=== PATIENT | female | born 1940 | race African-American/Black ===

== ENCOUNTER 2018-10-29 17:50 | Emergency (ER) | payer BC, MEDICARE, OTHER ==
[~2018-10-29] VITALS: Ht 162.6 cm; Wt 63.5 kg
[2018-10-29 18:57] LABS: Basophils # (auto) 0 uL; Basophils % (auto) 0.6 % (0.0-2.0); Eosinophils # (auto) 0 uL; Eosinophils % (auto) 0.8 % (0.0-7.0); Hematocrit 43.6 % (36.0-46.0); Hemoglobin 14.6 g/dL (12.2-16.2); Lymphocytes # (auto) 1.5 uL; Lymphocytes % (auto) 29.7 % (10.0-50.0); Mean Corpuscular Hemoglobin 30.6 pg (28.0-32.0); Mean Corpuscular Hgb Conc. 33.5 g/dL (32.0-36.0); Mean Corpuscular Volume 91.1 fL (80.0-100.0); Monocytes # (auto) 0.4 uL; Monocytes % (auto) 7.2 % (0.0-12.0); Neutrophils # (auto) 3.1 uL; Neutrophils % (auto) 61.7 % (37.0-80.0); Nucleated Red Blood Cells % 0.1 %; Platelet Count (auto) 206 10^3/uL (140-450); Red Blood Cells 4.78 10^6/uL (4.0-5.20); Red Cell Distribution Width 13.3 % (11.8-14.3)
[2018-10-29 19:12] LABS: Albumin 3.5 g/dL (3.4-5.0); Anion Gap 9 (5-15); BUN/Creatinine Ratio 9.9; Blood Urea Nitrogen 9 mg/dL (7-18); Calcium 8.6 mg/dL (8.5-10.1); Carbon Dioxide 31 mmol/L (21-32); Chloride 105 mmol/L (98-107); GFR African American 77 mL/min; GFR Non-African American 64 mL/min; Glucose 98 mg/dL (74-106); Potassium 3.1 mmol/L (3.5-5.1); Sodium 145 mmol/L (136-145)
[2018-10-29 19:23] LABS: Alanine Aminotransferase 15 U/L (13-56); Alkaline Phosphatase 80 U/L (45-117); Aspartate Aminotransferase 17 U/L (15-37); Bilirubin, Total 0.8 mg/dL (0.2-1.0)
[2018-10-29 20:18] VITALS: BP 163/75
== END 2018-10-29 20:26 | disposition home or self-care (01) ==
LOC: EDBD 17:50 → ER 17:55
DX: I10 Essential (primary) hypertension (principal); E11.9 Type 2 diabetes mellitus without complications; M10.9 Gout, unspecified; F17.210 Nicotine dependence, cigarettes, uncomplicated; Z88.2 Allergy status to sulfonamides
CPT/HCPCS: 36415; 80053; 84484; 85025; 93005

== ENCOUNTER → 2018-11-16 | Outpatient (CLI) | payer BC, MEDICARE ==
[2018-11-16 08:32] LABS: Basophils # (auto) 0 uL; Basophils % (auto) 0.6 % (0.0-2.0); Eosinophils # (auto) 0.1 uL; Eosinophils % (auto) 1.9 % (0.0-7.0); Hematocrit 45.5 % (36.0-46.0); Lymphocytes # (auto) 1.5 uL; Lymphocytes % (auto) 29.6 % (10.0-50.0); Mean Corpuscular Hemoglobin 30.3 pg (28.0-32.0); Mean Corpuscular Hgb Conc. 33.1 g/dL (32.0-36.0); Mean Corpuscular Volume 91.6 fL (80.0-100.0); Monocytes # (auto) 0.4 uL; Monocytes % (auto) 7.6 % (0.0-12.0); Neutrophils # (auto) 3.1 uL; Neutrophils % (auto) 60.3 % (37.0-80.0); Nucleated Red Blood Cells % 0.1 %; Platelet Count (auto) 254 10^3/uL (140-450); Red Blood Cells 4.96 10^6/uL (4.0-5.20); Red Cell Distribution Width 13.2 % (11.8-14.3); White Blood Cell 5.1 10^3/uL (4.4-10.8)
[2018-11-16 09:17] LABS: Albumin 3.8 g/dL (3.4-5.0); Calcium 9.1 mg/dL (8.5-10.1); Potassium 3.6 mmol/L (3.5-5.1)
[2018-11-16 09:23] LABS: Bilirubin, Total 0.5 mg/dL (0.2-1.0); CRP High Sensitivity 0.08 mg/dL (< 0.3); Total Protein 7.4 g/dL (6.4-8.2)
== END | disposition home or self-care (01) ==
LOC: LAB 07:51
PROVIDERS: ATTEND Nurse Practitioner
DX: Z13.220 Encounter for screening for lipoid disorders (principal); Z02.83 Encounter for blood-alcohol and blood-drug test; Z12.11 Encounter for screening for malignant neoplasm of colon; R68.89 Other general symptoms and signs; R94.6 Abnormal results of thyroid function studies; E55.9 Vitamin D deficiency, unspecified; R80.9 Proteinuria, unspecified; R79.89 Other specified abnormal findings of blood chemistry
CPT/HCPCS: 36415; 80053; 80061; 82306; 83036; 84439; 84443; 85025; 86141; 87086

== ENCOUNTER 2019-01-13 10:39 | Emergency (ER) | payer BC, MEDICARE ==
[~2019-01-13] VITALS: Ht 167.6 cm; Wt 61.2 kg
[2019-01-13 11:19] LABS: Basophils # (auto) 0 uL; Basophils % (auto) 0.3 % (0.0-2.0); Eosinophils # (auto) 0 uL; Eosinophils % (auto) 0.2 % (0.0-7.0); Hematocrit 39.5 % (36.0-46.0); Hemoglobin 13.4 g/dL (12.2-16.2); Lymphocytes # (auto) 1.1 uL; Lymphocytes % (auto) 10.4 % (10.0-50.0); Mean Corpuscular Hemoglobin 30.5 pg (28.0-32.0); Mean Corpuscular Hgb Conc. 33.9 g/dL (32.0-36.0); Mean Corpuscular Volume 89.9 fL (80.0-100.0); Monocytes # (auto) 0.9 uL; Monocytes % (auto) 8.7 % (0.0-12.0); Neutrophils # (auto) 8.6 uL; Neutrophils % (auto) 80.4 % (37.0-80.0); Nucleated Red Blood Cells % 0.2 %; Platelet Count (auto) 383 10^3/uL (140-450); Red Cell Distribution Width 12.9 % (11.8-14.3); White Blood Cell 10.7 10^3/uL (4.4-10.8)
[2019-01-13] MEDS ORDERED: IPRATROPIUM BROM 0.5 MG/2.5ML INH SOL HHN ONE (11:30)
[2019-01-13] MEDS ORDERED: methylPREDNISolone SOD SUCC 125 MG/2 ML VL IV ONE (11:30)
[2019-01-13] MEDS ORDERED: ALBUTEROL SULF 2.5 MG/0.5ML(0.5%) NEB SOLN HHN ONE (11:30)
[2019-01-13 11:58] LABS: Potassium 2.8 mmol/L (3.5-5.1)
[2019-01-13] MEDS ORDERED: POTASSIUM CHL 20 Meq TABLET PO ONE (12:00)
[2019-01-13 12:58] VITALS: BP 151/72
== END 2019-01-13 13:10 | disposition home or self-care (01) ==
LOC: ER 10:39
DX: J20.9 Acute bronchitis, unspecified (principal); J44.9 Chronic obstructive pulmonary disease, unspecified; M10.9 Gout, unspecified; E78.5 Hyperlipidemia, unspecified; E11.9 Type 2 diabetes mellitus without complications; F17.210 Nicotine dependence, cigarettes, uncomplicated
CPT/HCPCS: 36415; 71045; 80048; 85025; 93005; 94640; 94761; 96374; 99284; J2930; J7611; J7644

== ENCOUNTER 2019-06-13 16:07 | Emergency (ER) | payer BC ==
[~2019-06-13] VITALS: Ht 167.6 cm; Wt 61.7 kg
[2019-06-13] MEDS ORDERED: cloNIDine HCL 0.1 MG TAB ONE (16:52)
[2019-06-13] MEDS ORDERED: cloNIDine HCL 0.1 MG TAB PO ONE (17:00)
[2019-06-13 19:07] LABS: Alanine Aminotransferase 12 U/L (13-56); Albumin 3.6 g/dL (3.4-5.0); Anion Gap 3 (5-15); Aspartate Aminotransferase 13 U/L (15-37); BUN/Creatinine Ratio 8.1; Blood Urea Nitrogen 8 mg/dL (7-18); Calcium 8.9 mg/dL (8.5-10.1); Carbon Dioxide 31 mmol/L (21-32); Chloride 107 mmol/L (98-107); GFR African American 70 mL/min; GFR Non-African American 58 mL/min; Glucose 115 mg/dL (74-106); Potassium 3.3 mmol/L (3.5-5.1); Sodium 141 mmol/L (136-145)
[2019-06-13 19:12] LABS: Basophils # (auto) 0 uL; Basophils % (auto) 0.6 % (0.0-2.0); Eosinophils # (auto) 0 uL; Eosinophils % (auto) 0.5 % (0.0-7.0); Hematocrit 44.4 % (36.0-46.0); Hemoglobin 15.1 g/dL (12.2-16.2); Lymphocytes # (auto) 1.8 uL; Lymphocytes % (auto) 26.3 % (10.0-50.0); Mean Corpuscular Hemoglobin 30.8 pg (28.0-32.0); Mean Corpuscular Hgb Conc. 33.9 g/dL (32.0-36.0); Mean Corpuscular Volume 90.8 fL (80.0-100.0); Monocytes # (auto) 0.4 uL; Monocytes % (auto) 5.9 % (0.0-12.0); Neutrophils # (auto) 4.7 uL; Neutrophils % (auto) 66.7 % (37.0-80.0); Nucleated Red Blood Cells % 0.2 %; Platelet Count (auto) 260 10^3/uL (140-450); Red Cell Distribution Width 13.6 % (11.8-14.3)
[2019-06-13] MEDS ORDERED: SODIUM CHLORIDE 0.9% 1,000 ML IV ONE (19:15)
[2019-06-13] MEDS ORDERED: DEXTROSE (50%) 50ML SYRG IV ONE (19:15)
[2019-06-13 19:17] LABS: Alkaline Phosphatase 74 U/L (45-117); Total Protein 6.7 g/dL (6.4-8.2)
[2019-06-13 21:30] VITALS: BP 136/61
== END 2019-06-13 23:29 | disposition home or self-care (01) ==
LOC: ER 16:07
DX: I16.0 Hypertensive urgency (principal); E11.9 Type 2 diabetes mellitus without complications; M10.9 Gout, unspecified; E78.5 Hyperlipidemia, unspecified; Z88.2 Allergy status to sulfonamides
CPT/HCPCS: 36415; 80053; 82962; 84484; 85025; 93005; 99284; J7030

== ENCOUNTER 2020-03-25 18:50 | Inpatient (IN) | payer BC, MEDICAID ==
[~2020-03-25] VITALS: Ht 167.6 cm; Wt 55.2 kg
[2020-03-25] MEDS ORDERED: levoFLOXacin 500MG 100 ML IV ONE (19:30)
[2020-03-25] MEDS ORDERED: SODIUM CHLORIDE 0.9% 1,000 ML IVB ONE (19:30)
[2020-03-25 21:42] LABS: Basophils # (auto) 0 10 ^3/uL (0-0.2); Eosinophils # (auto) 0 10 ^3/uL (0-0.8); Lymphocytes # (auto) 0.9 10 ^3/uL (0.4-5.4); Lymphocytes % (auto) 4.9 % (10.0-50.0)
[2020-03-25 21:43] LABS: Basophils % (auto) 0.2 % (0.0-2.0); Hematocrit 52.7 % (36.0-46.0); Hemoglobin 17.1 g/dL (12.2-16.2); Mean Corpuscular Hemoglobin 29.7 pg (28.0-32.0); Mean Corpuscular Hgb Conc. 32.4 g/dL (32.0-36.0); Mean Corpuscular Volume 91.5 fL (80.0-100.0); Monocytes # (auto) 1.2 10 ^3/uL (0-1.3); Monocytes % (auto) 6.7 % (0.0-12.0); Neutrophils # (auto) 15.7 10 ^3/uL (1.6-8.6); Neutrophils % (auto) 88.2 % (37.0-80.0); Platelet Count (auto) 309 10^3/uL (140-450); Red Blood Cells 5.75 10^6/uL (4.0-5.20); Red Cell Distribution Width 13.8 % (11.8-14.3); White Blood Cell 17.9 10^3/uL (4.4-10.8)
[2020-03-26 00:03] LABS: Albumin 3.6 g/dL (3.4-5.0); Anion Gap 12 (5-15); Calcium 9.8 mg/dL (8.5-10.1); Carbon Dioxide 22 mmol/L (21-32); Chloride 116 mmol/L (98-107); Glucose 142 mg/dL (74-106); Magnesium 2.4 mg/dL (1.6-2.6); Potassium 4.4 mmol/L (3.5-5.1); Sodium 150 mmol/L (136-145)
[2020-03-26 00:05] LABS: Alanine Aminotransferase 119 U/L (13-56); Aspartate Aminotransferase 96 U/L (15-37); Blood Alcohol < 3.0 mg/dL (0-5); GFR African American 20 mL/min; GFR Non-African American 16 mL/min; Lactic Acid w/Reflex 5.7 mmol/L (0.4-2.0)
[2020-03-26 00:07] LABS: Alkaline Phosphatase 112 U/L (45-117); BUN/Creatinine Ratio 31.8; Total Protein 8.1 g/dL (6.4-8.2)
[2020-03-26 00:09] LABS: Blood Urea Nitrogen 93 mg/dL (7-18)
[2020-03-26 00:19] LABS: INR 1.24 (0.9-1.15); Partial Thromboplastin Time 25.6 sec (23.0-31.2)
[2020-03-26 01:53] LABS: Urine Bacteria FEW /hpf (None Seen); Urine Blood Negative /uL (Negative); Urine Hyaline Cast MANY /lpf (0 - 2); Urine Specific Gravity 1.015 (1.001-1.035); Urine WBC 1 /hpf (0 - 5)
[2020-03-26 02:03] LABS: BUN/Creatinine Ratio 31.8; Calcium 9.6 mg/dL (8.5-10.1)
[2020-03-26 02:07] LABS: Amphetamine Screen, Urine NEGATIVE (NEGATIVE); Barbiturate Scree,Urine NEGATIVE (NEGATIVE); Benzodiazephine Screen, Urine NEGATIVE (NEGATIVE); Cannabinoid Screen, Urine NEGATIVE (NEGATIVE); Opiate Scree,Urine NEGATIVE (NEGATIVE); Phencyclidine Screen, Urine NEGATIVE (NEGATIVE)
[2020-03-26 02:13] LABS: Alcohol, Urine < 3.0 mg/dL (0-10)
[2020-03-26] MEDS ORDERED: ASPirin 325 MG TAB PO ONE (02:15)
[2020-03-26] MEDS ORDERED: SODIUM CHLORIDE 0.9% 1,000 ML IV ONE (02:15)
[2020-03-26 02:17] LABS: Cocaine Screen, Urine NEGATIVE (NEGATIVE)
[2020-03-26] MEDS ORDERED: NITROGLYCERIN 0.4 MG SL TAB SL PRN (03:00)
[2020-03-26] MEDS ORDERED: ONDANSETRON HCL 4 MG/2 ML VIAL IV PRN (03:00)
[2020-03-26] MEDS ORDERED: DEXTROSE (50%) 50ML SYRG IV PRN (03:00)
[2020-03-26] MEDS ORDERED: SOD CHL 0.45% 1,000 ML IV SCH (03:00)
[2020-03-26] MEDS ORDERED: MORPHINE SULF INJ 2 MG/ML SYRINGE 1ML IV PRN (03:00)
[2020-03-26] MEDS ORDERED: ACETAMINOPHEN 325 MG TAB PO PRN (03:00)
[2020-03-26] MEDS: ACCU-CHEK COMFORT CURVE STRIP VI SCH ×3 (06:00→17:05)
[2020-03-26] MEDS: InsuLIN REG 1unit/0.01ml Soln (100units/ml) SC SCH ×3 (06:00→17:05)
[2020-03-26] MEDS ORDERED: LORazepam 2MG/ML-1ML VIAL IV ONE (08:45)
[2020-03-26] MEDS: APIXABAN 5 MG TAB PO SCH ×2 (12:31→22:00)
[2020-03-26] MEDS: ASPirin 81 mg TAB PO SCH (12:31)
[2020-03-26] MEDS: PANTOPRAZOLE 40 MG/10 ML VIAL INJ IV SCH (12:31)
[2020-03-26 14:28] LABS: Basophils # (auto) 0 10 ^3/uL (0-0.2); Basophils % (auto) 0.1 % (0.0-2.0); Eosinophils # (auto) 0 10 ^3/uL (0-0.8); Hematocrit 43.6 % (36.0-46.0); Hemoglobin 14.5 g/dL (12.2-16.2); Lymphocytes # (auto) 0.8 10 ^3/uL (0.4-5.4); Lymphocytes % (auto) 4.8 % (10.0-50.0); Mean Corpuscular Hemoglobin 29.5 pg (28.0-32.0); Mean Corpuscular Hgb Conc. 33.3 g/dL (32.0-36.0); Mean Corpuscular Volume 88.7 fL (80.0-100.0); Monocytes # (auto) 1.3 10 ^3/uL (0-1.3); Monocytes % (auto) 8.5 % (0.0-12.0); Neutrophils # (auto) 13.7 10 ^3/uL (1.6-8.6); Neutrophils % (auto) 86.6 % (37.0-80.0); Platelet Count (auto) 285 10^3/uL (140-450); Red Blood Cells 4.91 10^6/uL (4.0-5.20); Red Cell Distribution Width 13.5 % (11.8-14.3); White Blood Cell 15.8 10^3/uL (4.4-10.8)
[2020-03-26] MEDS: metroNIDAZOLE 500MG/100ML 100 ML IV SCH ×2 (14:38→22:00)
[2020-03-26 14:43] LABS: Albumin 2.9 g/dL (3.4-5.0); BUN/Creatinine Ratio 38.4; Calcium 8.8 mg/dL (8.5-10.1); Magnesium 2.1 mg/dL (1.6-2.6); Potassium 3.6 mmol/L (3.5-5.1)
[2020-03-26 14:45] LABS: Total Protein 6.7 g/dL (6.4-8.2)
[2020-03-26] MEDS: D5W/SOD CHL 0.45% 1,000 ML IV SCH (17:05)
[2020-03-26] MEDS: ATORVASTATIN 20 MG TAB PO SCH (22:00)
[2020-03-26] MEDS ORDERED: APIXABAN 2.5 MG TAB PO SCH (22:00)
[2020-03-27] MEDS: D5W/SOD CHL 0.45% 1,000 ML IV SCH (03:07)
[2020-03-27] MEDS: InsuLIN REG 1unit/0.01ml Soln (100units/ml) SC SCH ×4 (06:00→17:25)
[2020-03-27] MEDS: ACCU-CHEK COMFORT CURVE STRIP VI SCH ×4 (06:17→17:26)
[2020-03-27] MEDS: metroNIDAZOLE 500MG/100ML 100 ML IV SCH ×3 (06:25→22:00)
[2020-03-27 08:18] LABS: Potassium 4.1 mmol/L (3.5-5.1)
[2020-03-27 08:27] LABS: BUN/Creatinine Ratio 39.6
[2020-03-27 08:28] LABS: Albumin 2.9 g/dL (3.4-5.0); Bilirubin, Total 0.9 mg/dL (0.2-1.0); Calcium 9.4 mg/dL (8.5-10.1); Total Protein 6.8 g/dL (6.4-8.2)
[2020-03-27] MEDS: ASPirin 81 mg TAB PO SCH (08:43)
[2020-03-27] MEDS: PANTOPRAZOLE 40 MG/10 ML VIAL INJ IV SCH (08:43)
[2020-03-27] MEDS: APIXABAN 5 MG TAB PO SCH ×2 (08:43→22:00)
[2020-03-27] MEDS: D5W 5% 1,000 ML IV SCH ×2 (09:36→17:25)
[2020-03-27] MEDS: LORazepam 2MG/ML-1ML VIAL IV PRN ×2 (11:45→21:41)
[2020-03-27 12:00] LABS: Basophils # (auto) 0 10 ^3/uL (0-0.2); Basophils % (auto) 0.2 % (0.0-2.0); Eosinophils # (auto) 0 10 ^3/uL (0-0.8); Hematocrit 48.4 % (36.0-46.0); Hemoglobin 15.9 g/dL (12.2-16.2); Lymphocytes # (auto) 0.9 10 ^3/uL (0.4-5.4); Lymphocytes % (auto) 5.3 % (10.0-50.0); Mean Corpuscular Hemoglobin 29.8 pg (28.0-32.0); Mean Corpuscular Hgb Conc. 32.8 g/dL (32.0-36.0); Mean Corpuscular Volume 90.9 fL (80.0-100.0); Monocytes # (auto) 1.2 10 ^3/uL (0-1.3); Monocytes % (auto) 7.1 % (0.0-12.0); Neutrophils % (auto) 87.4 % (37.0-80.0); Platelet Count (auto) 270 10^3/uL (140-450); Red Blood Cells 5.32 10^6/uL (4.0-5.20); Red Cell Distribution Width 13.7 % (11.8-14.3); White Blood Cell 17.1 10^3/uL (4.4-10.8)
[2020-03-27] MEDS ORDERED: HALOPERIDOL LACTATE 5 MG/ML INJ VIAL ONE (14:37)
[2020-03-27] MEDS ORDERED: HALOPERIDOL LACTATE 5 MG/ML INJ VIAL IM ONE (14:45)
[2020-03-27] MEDS: ATORVASTATIN 20 MG TAB PO SCH (22:00)
[2020-03-27] MEDS: levoFLOXacin 250MG 50 ML IV SCH (23:00)
[2020-03-28] MEDS: ACCU-CHEK COMFORT CURVE STRIP VI SCH ×4 (00:06→16:52)
[2020-03-28] MEDS: LORazepam 2MG/ML-1ML VIAL IV PRN ×4 (04:01→23:31)
[2020-03-28] MEDS: D5W 5% 1,000 ML IV SCH ×3 (04:11→23:31)
[2020-03-28] MEDS: InsuLIN REG 1unit/0.01ml Soln (100units/ml) SC SCH ×4 (06:00→16:52)
[2020-03-28] MEDS: metroNIDAZOLE 500MG/100ML 100 ML IV SCH ×3 (06:06→22:11)
[2020-03-28 06:26] LABS: Basophils # (auto) 0 10 ^3/uL (0-0.2); Basophils % (auto) 0.3 % (0.0-2.0); Eosinophils # (auto) 0 10 ^3/uL (0-0.8); Eosinophils % (auto) 0.1 % (0.0-7.0); Hemoglobin 13.9 g/dL (12.2-16.2); Lymphocytes # (auto) 0.8 10 ^3/uL (0.4-5.4); Lymphocytes % (auto) 5.2 % (10.0-50.0); Mean Corpuscular Hemoglobin 29.2 pg (28.0-32.0); Mean Corpuscular Hgb Conc. 32.4 g/dL (32.0-36.0); Mean Corpuscular Volume 90.1 fL (80.0-100.0); Monocytes # (auto) 0.9 10 ^3/uL (0-1.3); Monocytes % (auto) 5.8 % (0.0-12.0); Neutrophils # (auto) 13.6 10 ^3/uL (1.6-8.6); Neutrophils % (auto) 88.6 % (37.0-80.0); Nucleated Red Blood Cells % 0.3 %; Platelet Count (auto) 257 10^3/uL (140-450); Red Blood Cells 4.78 10^6/uL (4.0-5.20); Red Cell Distribution Width 13.8 % (11.8-14.3); White Blood Cell 15.3 10^3/uL (4.4-10.8)
[2020-03-28 06:39] LABS: Urine Bacteria FEW /hpf (None Seen); Urine Blood 2+ /uL (Negative); Urine Specific Gravity 1.014 (1.001-1.035); Urine WBC 5 /hpf (0 - 5)
[2020-03-28 06:44] LABS: Calcium 9.1 mg/dL (8.5-10.1); Magnesium 2.4 mg/dL (1.6-2.6)
[2020-03-28 06:49] LABS: Albumin 2.8 g/dL (3.4-5.0); BUN/Creatinine Ratio 35.6; Bilirubin, Total 1.1 mg/dL (0.2-1.0); Phosphorus 1.7 mg/dL (2.5-4.90); Total Protein 6.3 g/dL (6.4-8.2)
[2020-03-28 06:52] LABS: Protein, Urine 26.6 mg/dL (0.0-11.9)
[2020-03-28 07:15] LABS: Potassium 3.6 mmol/L (3.5-5.1)
[2020-03-28] MEDS: PANTOPRAZOLE 40 MG/10 ML VIAL INJ IV SCH (07:53)
[2020-03-28] MEDS: APIXABAN 5 MG TAB PO SCH ×2 (07:53→22:11)
[2020-03-28] MEDS: ASPirin 81 mg TAB PO SCH (07:53)
[2020-03-28] MEDS: HALOPERIDOL LACTATE 5 MG/ML INJ VIAL IM PRN (07:54)
[2020-03-28] MEDS ORDERED: diphenhdrAMINE HCL 50 MG/1 ML VL ONE (11:58)
[2020-03-28] MEDS: diphenhdrAMINE HCL 50 MG/1 ML VL IV PRN ×2 (12:07→23:32)
[2020-03-28 15:49] LABS: BUN/Creatinine Ratio 33.3; Potassium 3.3 mmol/L (3.5-5.1)
[2020-03-28] MEDS: ATORVASTATIN 20 MG TAB PO SCH (22:11)
[2020-03-28] MEDS: levoFLOXacin 250MG 50 ML IV SCH (23:31)
[2020-03-28] MEDS: POTASSIUM CHL 20MEQ/100ML 100 ML IV SCH (23:34)
[2020-03-29] MEDS: ACCU-CHEK COMFORT CURVE STRIP VI SCH ×4 (00:16→18:22)
[2020-03-29] MEDS: POTASSIUM CHL 20MEQ/100ML 100 ML IV SCH (01:23)
[2020-03-29 03:50] LABS: Folate (Folic Acid) 19.68 ng/mL (5.38-24)
[2020-03-29] MEDS: metroNIDAZOLE 500MG/100ML 100 ML IV SCH ×3 (05:32→22:47)
[2020-03-29] MEDS: InsuLIN REG 1unit/0.01ml Soln (100units/ml) SC SCH ×4 (06:00→18:00)
[2020-03-29] MEDS: D5W 5% 1,000 ML IV SCH ×3 (06:54→22:56)
[2020-03-29 06:57] LABS: Basophils # (auto) 0 10 ^3/uL (0-0.2); Basophils % (auto) 0.1 % (0.0-2.0); Eosinophils # (auto) 0 10 ^3/uL (0-0.8); Eosinophils % (auto) 0.2 % (0.0-7.0); Hematocrit 46.6 % (36.0-46.0); Hemoglobin 15.3 g/dL (12.2-16.2); Lymphocytes # (auto) 1.3 10 ^3/uL (0.4-5.4); Lymphocytes % (auto) 8.1 % (10.0-50.0); Mean Corpuscular Hemoglobin 29.2 pg (28.0-32.0); Mean Corpuscular Hgb Conc. 32.9 g/dL (32.0-36.0); Mean Corpuscular Volume 88.8 fL (80.0-100.0); Monocytes % (auto) 5.8 % (0.0-12.0); Neutrophils % (auto) 85.8 % (37.0-80.0); Platelet Count (auto) 219 10^3/uL (140-450); Red Blood Cells 5.25 10^6/uL (4.0-5.20); Red Cell Distribution Width 13.5 % (11.8-14.3); White Blood Cell 16.3 10^3/uL (4.4-10.8)
[2020-03-29 07:04] LABS: Potassium 4.2 mmol/L (3.5-5.1)
[2020-03-29 07:20] LABS: Albumin 2.8 g/dL (3.4-5.0); BUN/Creatinine Ratio 27.6; Bilirubin, Total 1.3 mg/dL (0.2-1.0); Calcium 9.1 mg/dL (8.5-10.1); Total Protein 6.6 g/dL (6.4-8.2)
[2020-03-29] MEDS: LORazepam 2MG/ML-1ML VIAL IV PRN (09:05)
[2020-03-29] MEDS: APIXABAN 5 MG TAB PO SCH ×2 (10:00→22:47)
[2020-03-29] MEDS: ASPirin 81 mg TAB PO SCH (10:00)
[2020-03-29] MEDS: PANTOPRAZOLE 40 MG/10 ML VIAL INJ IV SCH (11:02)
[2020-03-29] MEDS: ATORVASTATIN 20 MG TAB PO SCH (22:47)
[2020-03-29] MEDS: HALOPERIDOL LACTATE 5 MG/ML INJ VIAL IM PRN (23:51)
[2020-03-30] MEDS: LORazepam 2MG/ML-1ML VIAL IV PRN ×2 (00:13→14:05)
[2020-03-30] MEDS: ACCU-CHEK COMFORT CURVE STRIP VI SCH ×4 (00:13→18:29)
[2020-03-30] MEDS: levoFLOXacin 250MG 50 ML IV SCH (00:20)
[2020-03-30] MEDS: metroNIDAZOLE 500MG/100ML 100 ML IV SCH ×3 (05:45→22:08)
[2020-03-30 06:45] LABS: Potassium 4.1 mmol/L (3.5-5.1)
[2020-03-30 06:54] LABS: BUN/Creatinine Ratio 24.1; Calcium 9.3 mg/dL (8.5-10.1)
[2020-03-30] MEDS: InsuLIN REG 1unit/0.01ml Soln (100units/ml) SC SCH ×4 (07:40→18:29)
[2020-03-30] MEDS: D5W 5% 1,000 ML IV SCH ×5 (07:44→23:29)
[2020-03-30] MEDS: PANTOPRAZOLE 40 MG/10 ML VIAL INJ IV SCH (10:14)
[2020-03-30] MEDS: ASPirin 81 mg TAB PO SCH (10:14)
[2020-03-30] MEDS: APIXABAN 5 MG TAB PO SCH ×2 (10:14→22:09)
[2020-03-30] MEDS: HALOPERIDOL LACTATE 5 MG/ML INJ VIAL IM PRN (14:05)
[2020-03-30 15:15] VITALS: BP 142/85
[2020-03-30 21:00] VITALS: BP 164/105
[2020-03-30] MEDS: ATORVASTATIN 20 MG TAB PO SCH (22:09)
[2020-03-30] MEDS ORDERED: hydrALAZINE HCL 20 MG/ML VL IV PRN (23:15)
[2020-03-31] MEDS: levoFLOXacin 250MG 50 ML IV SCH (00:20)
[2020-03-31] MEDS: InsuLIN REG 1unit/0.01ml Soln (100units/ml) SC SCH ×4 (00:22→17:37)
[2020-03-31] MEDS: ACCU-CHEK COMFORT CURVE STRIP VI SCH ×4 (00:31→18:08)
[2020-03-31] MEDS: LORazepam 2MG/ML-1ML VIAL IV PRN (00:32)
[2020-03-31 05:00] VITALS: BP 150/86
[2020-03-31] MEDS: metroNIDAZOLE 500MG/100ML 100 ML IV SCH ×3 (06:56→22:50)
[2020-03-31 09:00] VITALS: BP 157/86
[2020-03-31 09:49] LABS: Basophils # (auto) 0 10 ^3/uL (0-0.2); Basophils % (auto) 0.1 % (0.0-2.0); Eosinophils # (auto) 0 10 ^3/uL (0-0.8); Eosinophils % (auto) 0.2 % (0.0-7.0); Hemoglobin 12.2 g/dL (12.2-16.2); Lymphocytes # (auto) 0.7 10 ^3/uL (0.4-5.4); Mean Corpuscular Hemoglobin 29.8 pg (28.0-32.0); Mean Corpuscular Hgb Conc. 33.9 g/dL (32.0-36.0); Monocytes # (auto) 0.8 10 ^3/uL (0-1.3); Monocytes % (auto) 5.4 % (0.0-12.0); Neutrophils % (auto) 89.3 % (37.0-80.0); Nucleated Red Blood Cells % 0.1 %; Platelet Count (auto) 226 10^3/uL (140-450); Red Blood Cells 4.09 10^6/uL (4.0-5.20); Red Cell Distribution Width 13.5 % (11.8-14.3); White Blood Cell 14.6 10^3/uL (4.4-10.8)
[2020-03-31 10:24] LABS: BUN/Creatinine Ratio 17.9; Calcium 8.3 mg/dL (8.5-10.1)
[2020-03-31] MEDS: APIXABAN 5 MG TAB PO SCH ×2 (10:41→22:50)
[2020-03-31] MEDS: PANTOPRAZOLE 40 MG/10 ML VIAL INJ IV SCH (10:41)
[2020-03-31] MEDS: D5W 5% 1,000 ML IV SCH ×4 (10:42→20:37)
[2020-03-31 11:10] LABS: Potassium 2.9 mmol/L (3.5-5.1)
[2020-03-31] MEDS ORDERED: POTASSIUM CHL 20 Meq TABLET PO ONE (12:45)
[2020-03-31 13:00] VITALS: BP 139/90
[2020-03-31] MEDS: ASPirin 81 mg TAB PO SCH (13:02)
[2020-03-31] MEDS: POTASSIUM CHL 20MEQ/100ML 100 ML IV SCH ×3 (15:49→17:37)
[2020-03-31 22:00] VITALS: BP 144/69
[2020-03-31] MEDS: ATORVASTATIN 20 MG TAB PO SCH (22:51)
[2020-04-01] MEDS: ACCU-CHEK COMFORT CURVE STRIP VI SCH ×5 (00:51→23:41)
[2020-04-01] MEDS: levoFLOXacin 250MG 50 ML IV SCH (00:51)
[2020-04-01] MEDS: InsuLIN REG 1unit/0.01ml Soln (100units/ml) SC SCH ×5 (00:52→23:42)
[2020-04-01] MEDS: D5W 5% 1,000 ML IV SCH ×3 (01:15→12:31)
[2020-04-01 05:24] VITALS: BP 121/69
[2020-04-01] MEDS: metroNIDAZOLE 500MG/100ML 100 ML IV SCH ×3 (05:57→23:05)
[2020-04-01 09:00] VITALS: BP 112/62
[2020-04-01] MEDS: ASPirin 81 mg TAB PO SCH (10:37)
[2020-04-01] MEDS: PANTOPRAZOLE 40 MG/10 ML VIAL INJ IV SCH (10:37)
[2020-04-01] MEDS: APIXABAN 5 MG TAB PO SCH ×2 (10:37→23:06)
[2020-04-01 12:16] LABS: Albumin 2.5 g/dL (3.4-5.0); Calcium 7.8 mg/dL (8.5-10.1); Magnesium 1.4 mg/dL (1.6-2.6); Potassium 3.3 mmol/L (3.5-5.1)
[2020-04-01 12:21] LABS: BUN/Creatinine Ratio 8.7; Bilirubin, Total 0.8 mg/dL (0.2-1.0); Total Protein 5.7 g/dL (6.4-8.2)
[2020-04-01] MEDS ORDERED: POTASSIUM CHL 20 Meq TABLET PO ONE (12:45)
[2020-04-01 13:00] VITALS: BP 135/65
[2020-04-01] MEDS: MAGNESIUM SULFATE 1GM/100ML 100 ML IV SCH ×2 (14:42→15:52)
[2020-04-01 17:00] VITALS: BP 128/85
[2020-04-01] MEDS: ATORVASTATIN 20 MG TAB PO SCH (23:06)
[2020-04-02] MEDS: levoFLOXacin 250MG 50 ML IV SCH ×2 (01:15→23:52)
[2020-04-02 05:00] VITALS: BP 119/74
[2020-04-02] MEDS: InsuLIN REG 1unit/0.01ml Soln (100units/ml) SC SCH ×4 (06:00→23:52)
[2020-04-02] MEDS: metroNIDAZOLE 500MG/100ML 100 ML IV SCH ×3 (06:09→21:43)
[2020-04-02] MEDS: ACCU-CHEK COMFORT CURVE STRIP VI SCH ×4 (06:09→23:52)
[2020-04-02 08:30] VITALS: BP 136/63
[2020-04-02] MEDS: MAGNESIUM OXIDE 400 MG TAB PO SCH (09:41)
[2020-04-02] MEDS: ASPirin 81 mg TAB PO SCH (09:41)
[2020-04-02] MEDS: APIXABAN 5 MG TAB PO SCH ×2 (09:42→21:44)
[2020-04-02] MEDS: PANTOPRAZOLE 40 MG/10 ML VIAL INJ IV SCH (09:42)
[2020-04-02 12:30] VITALS: BP 149/74
[2020-04-02 16:41] VITALS: BP 146/71
[2020-04-02] MEDS: ATORVASTATIN 20 MG TAB PO SCH (21:44)
[2020-04-02 22:00] VITALS: BP 146/71
[2020-04-02 23:04] VITALS: BP 131/93
[2020-04-03 05:34] VITALS: BP 138/72
[2020-04-03] MEDS: metroNIDAZOLE 500MG/100ML 100 ML IV SCH ×4 (05:39→22:54)
[2020-04-03] MEDS: InsuLIN REG 1unit/0.01ml Soln (100units/ml) SC SCH ×3 (05:40→18:00)
[2020-04-03] MEDS: ACCU-CHEK COMFORT CURVE STRIP VI SCH ×3 (05:40→18:07)
[2020-04-03 07:59] VITALS: BP 152/70
[2020-04-03 10:35] LABS: BUN/Creatinine Ratio 7.1; Calcium 8.2 mg/dL (8.5-10.1); Magnesium 1.7 mg/dL (1.6-2.6); Phosphorus 1.1 mg/dL (2.5-4.90); Potassium 3.1 mmol/L (3.5-5.1)
[2020-04-03] MEDS: PANTOPRAZOLE 40 MG/10 ML VIAL INJ IV SCH (10:51)
[2020-04-03] MEDS: APIXABAN 5 MG TAB PO SCH ×3 (10:52→22:54)
[2020-04-03] MEDS: ASPirin 81 mg TAB PO SCH (10:52)
[2020-04-03] MEDS: MAGNESIUM OXIDE 400 MG TAB PO SCH (10:52)
[2020-04-03] MEDS ORDERED: POTASSIUM PHOSPHATE 26.4 MEQ in SODIUM CHL 0.9% 100 ML IV ONE (13:00)
[2020-04-03] MEDS ORDERED: MAGNESIUM OXIDE 400 MG TAB PO ONE (13:00)
[2020-04-03] MEDS ORDERED: POTASSIUM EFFERVESENT TAB 25 MEQ PO ONE (13:00)
[2020-04-03] MEDS ORDERED: OMNIPAQUE ORAL SOLN 500ml 12mg/ml PO ONE (13:04)
[2020-04-03] MEDS ORDERED: IOHEXOL 300 MG/ML 100ML BOTTLE IJ ONE (17:44)
[2020-04-03] MEDS: ATORVASTATIN 20 MG TAB PO SCH ×2 (22:00→22:55)
[2020-04-03] MEDS: LORazepam 2MG/ML-1ML VIAL IV PRN (22:53)
[2020-04-03] MEDS: levoFLOXacin 250MG 50 ML IV SCH (23:00)
[2020-04-04] MEDS: HALOPERIDOL LACTATE 5 MG/ML INJ VIAL IM PRN (00:47)
[2020-04-04] MEDS: InsuLIN REG 1unit/0.01ml Soln (100units/ml) SC SCH ×5 (05:52→23:43)
[2020-04-04] MEDS: ACCU-CHEK COMFORT CURVE STRIP VI SCH ×5 (05:52→23:43)
[2020-04-04] MEDS: metroNIDAZOLE 500MG/100ML 100 ML IV SCH ×3 (05:52→21:47)
[2020-04-04 07:06] LABS: BUN/Creatinine Ratio 5.2; Calcium 8.2 mg/dL (8.5-10.1); Potassium 3.3 mmol/L (3.5-5.1)
[2020-04-04 08:00] VITALS: BP 157/68
[2020-04-04 09:00] VITALS: BP 157/68
[2020-04-04] MEDS: PANTOPRAZOLE 40 MG/10 ML VIAL INJ IV SCH (09:31)
[2020-04-04] MEDS: MAGNESIUM OXIDE 400 MG TAB PO SCH (09:31)
[2020-04-04] MEDS: APIXABAN 5 MG TAB PO SCH ×2 (09:31→21:47)
[2020-04-04] MEDS: ASPirin 81 mg TAB PO SCH (09:31)
[2020-04-04 10:22] LABS: INR 1.47 (0.9-1.15)
[2020-04-04 13:00] VITALS: BP 150/88
[2020-04-04 17:00] VITALS: BP 154/68
[2020-04-04] MEDS: ATORVASTATIN 20 MG TAB PO SCH (21:48)
[2020-04-04 22:00] VITALS: BP 144/89
[2020-04-04] MEDS: levoFLOXacin 250MG 50 ML IV SCH (23:43)
[2020-04-05 05:00] VITALS: BP 157/79
[2020-04-05] MEDS: ACCU-CHEK COMFORT CURVE STRIP VI SCH ×2 (05:24→13:16)
[2020-04-05] MEDS: metroNIDAZOLE 500MG/100ML 100 ML IV SCH ×2 (05:24→13:32)
[2020-04-05] MEDS: InsuLIN REG 1unit/0.01ml Soln (100units/ml) SC SCH ×2 (05:24→12:00)
[2020-04-05 08:00] VITALS: BP 157/68
[2020-04-05 09:00] VITALS: BP 157/82
[2020-04-05] MEDS: APIXABAN 5 MG TAB PO SCH (10:34)
[2020-04-05] MEDS: ASPirin 81 mg TAB PO SCH (10:34)
[2020-04-05] MEDS: PANTOPRAZOLE 40 MG/10 ML VIAL INJ IV SCH (10:34)
[2020-04-05] MEDS: MAGNESIUM OXIDE 400 MG TAB PO SCH (10:35)
[2020-04-05 13:00] VITALS: BP 159/77
[2020-04-05] MEDS ORDERED: POTASSIUM EFFERVESENT TAB 25 MEQ PO ONE (15:30)
[2020-04-05 16:00] VITALS: BP 164/105
[2020-04-05 17:00] VITALS: BP 155/76
== END 2020-04-05 18:09 | disposition home health service (06) | DRG 871 ==
LOC: EDBD 18:50 → EDSEX 18:50 → ER 18:58 → TELE 18:59 → TELE-EAST 03-30 15:15
PROVIDERS: ADMIT Nurse Practitioner; ATTEND Internal Medicine
DX: A41.89 Other specified sepsis (principal); U07.1 COVID-19; N17.0 Acute kidney failure with tubular necrosis; G92 Toxic encephalopathy; J12.89 Other viral pneumonia; I21.A1 Myocardial infarction type 2; E87.0 Hyperosmolality and hypernatremia; N39.0 Urinary tract infection, site not specified; E87.1 Hypo-osmolality and hyponatremia; E86.0 Dehydration; I10 Essential (primary) hypertension; E78.5 Hyperlipidemia, unspecified; F17.210 Nicotine dependence, cigarettes, uncomplicated; F41.9 Anxiety disorder, unspecified; M10.9 Gout, unspecified; E87.6 Hypokalemia; R65.20 Severe sepsis without septic shock; E11.51 Type 2 diabetes mellitus with diabetic peripheral angiopathy without gangrene; F03.90 Unspecified dementia, unspecified severity, without behavioral disturbance, psychotic disturbance, mood disturbance, and anxiety; Z82.49 Family history of ischemic heart disease and other diseases of the circulatory system; Z79.01 Long term (current) use of anticoagulants
CPT/HCPCS: 36415; 70450; 71045; 71250; 74176; 74177; 78582; 80048; 80053; 80307; 80320; 81001; 82140; 82570; 82607; 82746; 82962; 83036; 83605; 83735; 83930; 84100; 84156; 84300; 84439; 84443; 84484; 85025; 85379; 85610; 85730; 87040; 87086; 93005; 93306; 93970; 96365; 97163; 99291; C9113; G0378; J1815; J1956; J3480; J3490

== ENCOUNTER 2021-05-03 20:16 | Emergency (ER) | payer BC, MEDICAID, MEDICARE, OTHER ==
[~2021-05-03] VITALS: Ht 167.6 cm; Wt 63.5 kg
[2021-05-03 20:35] VITALS: BP 142/82
[2021-05-03] MEDS ORDERED: GASTROGRAFIN 30 ML SOL ONE (22:15)
== END 2021-05-03 23:12 | disposition home or self-care (01) ==
LOC: ER 20:16 → EDBD 20:16 → ER 23:12
DX: E11.9 Type 2 diabetes mellitus without complications (principal); E78.5 Hyperlipidemia, unspecified; I10 Essential (primary) hypertension; F17.210 Nicotine dependence, cigarettes, uncomplicated; Z86.73 Personal history of transient ischemic attack (TIA), and cerebral infarction without residual deficits; Z93.1 Gastrostomy status; Z88.2 Allergy status to sulfonamides
CPT/HCPCS: 74018; 99283; Q9963